=== PATIENT | female | born 1960 | race Caucasian/White ===

== ENCOUNTER 2021-03-21 11:30 | Observation (INO) | payer BC, SELFPAY ==
[2021-03-21] VITALS (7 sets, daily range): BP systolic 90–115; BP diastolic 42–59; PULSE 94–103; RESP 16–26; TEMP 36.6; O2SAT 92–99; BMI 23.3
--- NOTE | 2021-03-21 11:51 | EKG12_ITS ---
Test Reason : EDEMA Blood Pressure : / mmHG Vent. Rate : 101 BPM Atrial Rate : 101 BPM P-R Int : 124 ms QRS Dur : 094 ms QT Int : 342 ms P-R-T Axes : 092 031 053 degrees QTc Int : 443 ms Sinus tachycardia Low voltage QRS Confirmed by LINK LAU, LAYTON ([id number]), subeditor BRII SERRANO ([id number]) on 03/24/2021 9:55:47 AM Referred By: FRANCISCO Confirmed By:LAYTON MAZA MD
--- NOTE | 2021-03-21 11:52 | EX.ED.DYSGE1 ---
HPI History of Present Illness Chief Complaint: Edema Detail of Chief Complaint: Shortness of breath and leg swelling for about a week Informant: patient Narrative Narrative: Patient has history of primary sclerosing cholangitis and had a biliary stent placed at [facility] 5 days ago. Patient is currently on Lasix and spironolactone. Patient states that she is noticed increased welling in her legs as well as her abdomen and she is having a harder time breathing. Patient has history of a right pleural effusion that several months ago required thoracentesis. Patient thinks the fluid may be back. Patient went to [facility] urgent care and was referred to the emergency department. Patient is from [facility] but gets her care at [facility] and did not want to drive all the way to [place]. Prior similar symptoms: Yes [facility] Medical History (Updated 03/21/21 @ 14:[address] Jonatan Ac, DO) PSC (primary sclerosing cholangitis) Home Medications ciprofloxacin HCl 500 mg PO BID 03/21/21 [History Last Taken Unknown] furosemide 40 mg PO DAILY 03/21/21 [History Last Taken Unknown] spironolactone 50 mg PO DAILY 03/21/21 [History Last Taken Unknown] Allergy/AdvReac Type Severity Reaction Status Date / Time Sulfa (Sulfonamide Allergy Hives Verified 03/21/21 11:33 Antibiotics) Social History Smoking Status: Former smoker ROS [facility] ED Constitutional Constitutional ED: Reports systems reviewed and no addt'l complaints, except as documented; Denies body ache(s), change in weight or chills Eyes Eyes: Denies acute decrease in peripheral vision, change in vision, double vision or loss of vision ENT ENT ED: Reports none; Denies ear pain, lip swelling, loss taste/smell, neck pain, otalgia or sore throat Cardiovascular Cardiovascular: Reports none; Denies abdominal pain, chest pain with activity, leg edema, lightheadedness, palpitations, rapid heart rate or syncope Respiratory/Chest Respiratory/Chest: Reports cough, dyspnea and dyspnea on exertion Gastrointestinal Gastrointestinal: Reports none; Denies abdominal pain, change in stool character, diarrhea, hematemesis, hematochezia, melena, rectal bleeding or vomiting Genitourinary Genitourinary ED: Reports none; Denies abdominal discomfort, anuria, dysuria, genital pain or polyuria Musculoskeletal Musculoskeletal: Reports none; Denies arthralgias, back pain, difficulty walking, extremity pain, muscle weakness or myalgias Integumentary Reports none; Denies abscess or rash Neurologic Neurologic: Reports none; Denies abnormal gait, confusion, focal weakness, frequent falls, headache(s), loss of vision, numbness, paresthesias, radicular pain, vertigo or weakness Psychiatric Psychiatric: Reports systems reviewed and no addt'l complaints, except as documented and none; Denies behavioral changes, confusion, difficulty concentrating, hallucinations, suicidal ideation, tactile hallucinations or visual hallucinations Endocrine Endocrinology: Denies none, cold intolerance, excessive sweating, fatigue or heat intolerance Hematologic/Lymphatic Hematologic/Lymphatic: Reports none; Denies anemia, easy bleeding or easy bruising Allergic/Immunologic Allergic/Immunologic ED: Denies as per HPI, none, lip swelling, mouth swelling, throat swelling, tongue swelling or hives EXAM Physical Exam Const Vital Signs: 03/21/21 11:31 03/21/21 11:54 03/21/21 12:20 Temperature 98 F Temperature Source Oral Pulse Rate 103 H 100 Respiratory Rate 16 20 H Respiratory Effort Short of Breath Respiratory Pattern Normal Blood Pressure 115/59 L 101/53 L Blood Pressure Mean 77 69 Pulse Ox 92 92 Oxygen Delivery Method Room Air Room Air 03/21/21 13:47 Temperature Temperature Source Pulse Rate 96 Respiratory Rate 22 H Respiratory Effort Respiratory Pattern Blood Pressure 93/42 L Blood Pressure Mean 59 Pulse Ox 95 Oxygen Delivery Method Room Air Positive well nourished and well developed General Appearance ED: well developed and NAD HEENT Reports TM's clear and moist mucous membranes HEENT Narrative: Patient has scleral icterus normocephalic and atraumatic; Negative for trauma or tenderness Tympanic Membrane ED: Yes TM's clear Eyes PERRL and EOMs intact bilaterally General Eye ED: Negative for pale conjunctiva or scleral icterus Neck no lymphadenopathy, supple and no JVD General: Negative for tenderness Chest Wall inspection of chest normal and palpation of chest normal Chest: Negative for tenderness Resp normal respiratory effort Resp Narrative: Patient has diminished breath sounds on the right compared to the left. Patient has few rales noted on the right. No accessory muscle use or retractions noted. Effort and Inspection: Negative for respiratory distress or pain with movement Auscultation: diminished lung sounds; Negative for rhonchi or wheezes Cardio regular rate, regular rhythm, S1 normal heart sound, S2 normal heart sound and no murmurs Peripheral Pulses: pulses 2+ throughout GI normal to inspection, nondistended, normoactive bowel sounds, soft to palpation, non-tender, non-distended and no masses GI Narrative: Abdomen is distended with a fluid wave noted. No significant tenderness on exam. Back/Spine no CVA tenderness and no thoracic nor lumbar tenderness Extremity normal to inspection General Extremety ED: Negative for edema General Extremity: Negative for edema Neuro oriented x3, CN's II-XII intact bilaterally, no sensory deficits noted and gait normal Sensorium / Orientation: awake, alert, oriented to person, oriented to place and oriented to time Motor Exam: strength 5/5 throughout and strength abnormal Psych mental status grossly normal Skin no rashes or lesions noted and no wounds MDM MDM MDM Narrative Medical decision making narrative: Patient noted to have a large pleural effusion on the right side. I feel this is the etiology of her dyspnea. Patient's bilirubin also elevated to 14 and she tells me her last bilirubin was 13. Given that patient had recent biliary stent placed at [facility] 5 days ago and her db2 systems programmer and specialist are at [facility] patient will be transferred back to their facility. I did discuss case with db2 systems programmer on-call who accepted transfer of patient back to the [facility]. Lab Data Attestation: I reviewed the patient's lab results. Labs: Laboratory Results - last 24 hr 03/21/21 03/21/21 03/21/21 12:15 12:15 12:15 WBC 8.8 RBC 3.72 L Hgb 12.0 Hct 35.0 L MCV 94.1 MCH 32.3 H MCHC 34.3 RDW Std Deviation 59.7 H RDW Coeff of Dorina 17.2 H Plt Count 107 L MPV 9.6 Immature Gran % (Auto) 5.000 H Neut % (Auto) 69.3 Lymph % (Auto) 9.4 L [place] % (Auto) 14.1 H Eos % (Auto) 1.4 Baso % (Auto) 0.8 Absolute Neuts (auto) 6.1 Absolute Lymphs (auto) 0.83 Nucleated RBC % 0 Sodium 129 L Potassium 4.2 Chloride 96 L Carbon Dioxide 28.0 Anion Gap 5 BUN 18 Creatinine 1.22 H Estim Creat Clear Calc 44.76 Est GFR (MDRD) Af Amer 57 L Est GFR (MDRD) Non-Af 47 L BUN/Creatinine Ratio 14.8 Glucose 87 Calcium 7.9 L Total Bilirubin 14.80 H AST 325 H ALT 195 H Alkaline Phosphatase 434 H Troponin I High Sens 6.8 B-Natriuretic Peptide 77.5 Total Protein 6.4 Albumin 1.7 L Globulin 4.7 H Albumin/Globulin Ratio 0.4 L Lipase 292 Radiography Chest X-Ray - ED: 1 View Diagnostic Testing: Radiology Impression Chest X-Ray 03/21/21 11:53 IMPRESSION: Large right-sided pleural effusion with associated airspace disease Small left pleural effusion Calcified mediastinal lymph nodes Electronically Signed: Elvis Martinez DO at 12:13 EDT Tel , Service support , 1 view chest x-ray obtained interpreted by myself as large right-sided pleural effusion and small left pleural effusion. Radiology in agreement. EKG Initial EKG: Attestation: I personally reviewed and interpreted this EKG as follows: Comments: Sinus rhythm with a ventricular rate of 101 bpm with no acute ST segment changes. Prior EKG tracings: not available for review Discharge Plan Triage Chief Complaint: Edema ED Provider: Jonatan Ac Dx/Rx/DC Orders Clinical Impression: Pleural effusion, Acute dyspnea, Hyperbilirubinemia Prescriptions: No Action furosemide 40 mg Tablet 40 mg PO DAILY RF: 0 ciprofloxacin HCl 500 mg Tablet 500 mg PO BID RF: 0 spironolactone 50 mg Tablet 50 mg PO DAILY RF: 0 Primary Care Provider: Remy Carter Referrals: Remy Carter MD [Primary Care Provider] - Disposition Disposition: Transfer to Another Type [facility]
--- NOTE | 2021-03-21 11:53 | RAD_ITS ---
STUDY: X-RAY CHEST REASON FOR EXAM: Female, 60 years old. dyspnea TECHNIQUE: Single AP portable view of the chest. COMPARISON: None. FINDINGS: Cardiac silhouette unremarkable. Pulmonary vascularity unremarkable. Aorta minimally calcified. Large right-sided pleural effusion with associated airspace disease. Small left pleural effusion. Calcified mediastinal lymph nodes. Upper abdomen unremarkable. Osseous structures intact. No pneumothorax. RAD/Chest 1 View (Portable) IMPRESSION: Large right-sided pleural effusion with associated airspace disease Small left pleural effusion Calcified mediastinal lymph nodes Electronically Signed: Elvis Martinez DO at 12:13 EDT Tel , Service support ,
[2021-03-21 12:34] LABS: Absolute Lymphocyte Count 0.83 X10^3/uL (0.83-4.51); Absolute Neutrophil Count 6.1 X10^3/uL (2.0-7.7); Basophil# 0.07 X10^3/uL; Basophil% 0.8 % (0-1); Eosinophil# 0.12 X10^3/uL; Eosinophils% 1.4 % (0-5); Lymphocyte # 0.83 X10^3/ul (0.83-4.51); Lymphocyte % 9.4 % (19-41); Mean Corp Hgb Conc 34.3 g/dL (32-36); Mean Corpuscular Hgb 32.3 pg (27.0-32.0); Mean Corpuscular Volume 94.1 fL (81-99); Mean Platelet Vol. 9.6 fl (6.2-12.0); Monocyte# 1.24 X10^3/uL; Monocyte% 14.1 % (0-10); NRBC Flagged by Analyzer 0 % (0-5); Neutrophil % 69.3 % (47-70); Platelet Count 107 K/mm3 (150-450); RBC Distribution Width CV 17.2 % (11.6-14.6); RBC Distribution Width SD 59.7 fl (35.1-43.9); Red Blood Count 3.72 M/mm3 (4.2-5.4); White Blood Count 8.8 K/mm3 (4.4-11.0)
[2021-03-21 12:52] LABS: ALB/GLOB Ratio 0.4 RATIO (0.9-2.4); AST(SGOT) 325 U/L (15-37); Alanine Aminotransfer ALT/SGPT 195 U/L (13-56); Albumin, Serum 1.7 g/dL (3.2-5.0); Alkaline Phosphatase 434 U/L (45-117); Anion Gap 5 (5-15); BUN 18 mg/dL (7-18); BUN/Creat Ratio 14.8 RATIO (10-20); Calcium,Total 7.9 mg/dL (8.5-10.1); Chloride 96 mmol/L (98-107); Creatinine, Serum 1.22 mg/dL (0.55-1.02); EST Glomerular Filtration Rate 47 mL/min (>60); Est Glom Filt Rate - Afr Amer 57 mL/min (>60); Estimated Creatinine Clearance 44.76 ml/min; Globulin 4.7 g/dL (2.2-4.2); Glucose 87 mg/dL (74-106); Lipase 292 U/L (73-393); Potassium 4.2 mmol/L (3.5-5.1); Protein, Total 6.4 g/dL (6.4-8.2); Sodium Level 129 mmol/L (136-145); Troponin-I HS 6.8 pg/mL (3.0-53.7)
[2021-03-21 12:56] LABS: BNP,B-Type NATRIURETIC PEPTIDE 77.5 pg/mL (0-100)
[2021-03-22] VITALS (9 sets, daily range): BP systolic 84–129; BP diastolic 26–77; PULSE 62–104; RESP 14–20; O2SAT 92–97
--- NOTE | 2021-03-22 07:24 | NURSING ---
CALLED [facility] TRANSFER LINE. TALKED TO KHOI. PATIENT IS ACCEPTED, BUT SHE RECOMMENDED WE ADMIT HER HERE
--- NOTE | 2021-03-22 10:07 | NURSING ---
CALLED [facility] FOR TRANSFER. BRITTNEY TOOK INFO, WILL CALL BACK
--- NOTE | 2021-03-22 11:54 | NURSING ---
BRITTNEY MELLO, REFUSED PATIENT
[2021-03-22] MEDS: LORazepam 2 MG/ML Syringe 0.5 MG IV (12:31)
[2021-03-22] MEDS: Furosemide 40 MG Tablet PO (14:08)
[2021-03-22] MEDS: Spironolactone 50 MG Tablet PO (14:08)
--- NOTE | 2021-03-22 14:22 | US_ITS ---
PROCEDURE: ULTRASOUND GUIDED THORACENTESIS. DATE: 03/22/2021.. INDICATION: Female, 60 years old. Right pleural effusion. PHYSICIAN: Graham Amaya M.D. PROCEDURE: The risks, benefits, and alternatives to the procedure were explained to the right. The specific risks of bleeding, infection, and pneumothorax requiring chest tube insertion were discussed and accepted. Written informed consent was obtained. Ultrasonographic evaluation of the right lower pleural space was carried out. An adequate pocket was identified. The patient was placed in the sitting, upright position. The overlying skin was prepped and draped in sterile fashion. 1% lidocaine was administered subcutaneously for local anesthesia. Under ultrasound guidance, a 5 Monegasque thoracentesis needle/catheter system was advanced into the right posterior lower pleural fluid collection. Approximately 2000 mL of balwinder-colored fluid fluid was drained. The catheter was removed, and a sterile dressing was applied. The patient tolerated the procedure well. A chest x-ray was ordered. US/Thoracentesis W US IMPRESSION: Ultrasound-guided right thoracentesis. Electronically Signed: Graham Amaya MD at 15:33 EDT , Service support ,
--- NOTE | 2021-03-22 15:00 | RAD_ITS ---
STUDY: X-RAY CHEST REASON FOR EXAM: Female, 60 years old. POST THORA TECHNIQUE: AP inspiration and expiration views. COMPARISON: Comparison is made with prior study done earlier today. FINDINGS: The patient is status post right thoracentesis with removal of 2 L of balwinder-colored fluid. No evidence of pneumothorax. Residual pleural parenchymal changes in the right hemithorax. RAD/Chest Insp/Exp 2 View IMPRESSION: Status post right thoracentesis with removal of 2 L of balwinder-colored fluid. No evidence of pneumothorax. Electronically Signed: Graham Amaya MD at 15:25 EDT , Service support ,
[2021-03-22] MEDS: Ciprofloxacin 500 MG Tablet PO (18:00)
[2021-03-23] VITALS (8 sets, daily range): BP systolic 85–109; BP diastolic 43–62; PULSE 90–98; RESP 14–20; TEMP 36.7; O2SAT 94–96
[2021-03-23 00:04] LABS: Absolute Lymphocyte Count 1.02 X10^3/uL (0.83-4.51); Basophil# 0.05 X10^3/uL; Basophil% 0.6 % (0-1); Eosinophils% 2.3 % (0-5); Hematocrit 30.3 % (37-47); Hemoglobin 10.3 g/dL (12.0-15.0); Lymphocyte # 1.02 X10^3/ul (0.83-4.51); Lymphocyte % 11.8 % (19-41); Mean Corpuscular Hgb 32.3 pg (27.0-32.0); Mean Platelet Vol. 9.5 fl (6.2-12.0); Monocyte# 1.09 X10^3/uL; Monocyte% 12.6 % (0-10); NRBC Flagged by Analyzer 0 % (0-5); Neutrophil # 5.95 X10^3/uL (2.7-7.7); Neutrophil % 68.5 % (47-70); POSITIVE COUNT YES; Platelet Count 84 K/mm3 (150-450); RBC Distribution Width CV 17.5 % (11.6-14.6); RBC Distribution Width SD 60.9 fl (35.1-43.9); Red Blood Count 3.19 M/mm3 (4.2-5.4); White Blood Count 8.7 K/mm3 (4.4-11.0)
[2021-03-23 00:05] LABS: Differential Indicated SCAN CRITERIA MET
[2021-03-23 00:21] LABS: Differential Comment SCANNED
[2021-03-23 00:22] LABS: Platelet Estimate MOD DEC (ADEQ)
[2021-03-23 00:27] LABS: ALB/GLOB Ratio 0.4 RATIO (0.9-2.4); AST(SGOT) 197 U/L (15-37); Alanine Aminotransfer ALT/SGPT 140 U/L (13-56); Albumin, Serum 1.4 g/dL (3.2-5.0); Alkaline Phosphatase 349 U/L (45-117); Anion Gap 7 (5-15); BUN 21 mg/dL (7-18); BUN/Creat Ratio 15.8 RATIO (10-20); Calcium,Total 7.8 mg/dL (8.5-10.1); Chloride 97 mmol/L (98-107); Creatinine, Serum 1.33 mg/dL (0.55-1.02); EST Glomerular Filtration Rate 43 mL/min (>60); Est Glom Filt Rate - Afr Amer 52 mL/min (>60); Estimated Creatinine Clearance 41.06 ml/min; Globulin 3.9 g/dL (2.2-4.2); Glucose 110 mg/dL (74-106); Lipase 287 U/L (73-393); Potassium 3.8 mmol/L (3.5-5.1); Protein, Total 5.3 g/dL (6.4-8.2); Sodium Level 132 mmol/L (136-145)
[2021-03-23] MEDS: Spironolactone 50 MG Tablet 100 MG PO (10:06)
[2021-03-23] MEDS: Furosemide 40 MG Tablet PO (10:06)
--- NOTE | 2021-03-23 10:30 | NURSING ---
CALLED [facility]. NO BED YET. NOT EXPECTING ANY DISCHARGES. CAN CALL BACK AFTER 1600 TO CHECK AGAIN
[2021-03-23] MEDS: LORazepam 0.5 MG Tablet PO (15:58)
--- NOTE | 2021-03-23 16:02 | NURSING ---
CALLED [facility] TRANSFER LINE. NOT LIKELY TO GET A BED TODAY. 70 PATIENTS IN THEIR ERS WAITING. THEY ARE AT CRITICAL BED STATUS
--- NOTE | 2021-03-23 16:09 | ED.RN ---
Pt aware that they have 70 pt ahead of her for bed placement
--- NOTE | 2021-03-23 18:53 | ED.RN ---
This RN talked to Dr. Barreto about admission to hospital. Dr. Barreto states they have tried multiple times but have been unsuccessful. Pt aware bed status at [place]
[2021-03-24] VITALS: BP 108/54; PULSE 82; RESP 15; O2SAT 99
[2021-03-24 04:55] VITALS: BP 118/56; PULSE 60; RESP 18; O2SAT 95
[2021-03-24 05:01] LABS: Hematocrit 31.7 % (37-47); Mean Corp Hgb Conc 34.7 g/dL (32-36); Mean Corpuscular Hgb 32.6 pg (27.0-32.0); Mean Corpuscular Volume 94.1 fL (81-99); POSITIVE COUNT YES; POSITIVE MORPHOLOGY YES; Platelet Count 88 K/mm3 (150-450); RBC Distribution Width CV 17.7 % (11.6-14.6); RBC Distribution Width SD 60.5 fl (35.1-43.9); Red Blood Count 3.37 M/mm3 (4.2-5.4); White Blood Count 9.3 K/mm3 (4.4-11.0)
[2021-03-24 05:06] LABS: Differential Indicated MANUAL DIFF
[2021-03-24 05:18] LABS: ALB/GLOB Ratio 0.4 RATIO (0.9-2.4); AST(SGOT) 212 U/L (15-37); Alanine Aminotransfer ALT/SGPT 153 U/L (13-56); Albumin, Serum 1.5 g/dL (3.2-5.0); Alkaline Phosphatase 373 U/L (45-117); Anion Gap 7 (5-15); BUN 20 mg/dL (7-18); BUN/Creat Ratio 17.4 RATIO (10-20); Calcium,Total 7.6 mg/dL (8.5-10.1); Chloride 96 mmol/L (98-107); Creatinine, Serum 1.15 mg/dL (0.55-1.02); EST Glomerular Filtration Rate 51 mL/min (>60); Est Glom Filt Rate - Afr Amer 61 mL/min (>60); Estimated Creatinine Clearance 47.48 ml/min; Globulin 3.9 g/dL (2.2-4.2); Glucose 95 mg/dL (74-106); Lipase 302 U/L (73-393); Potassium 3.6 mmol/L (3.5-5.1); Protein, Total 5.4 g/dL (6.4-8.2); Sodium Level 133 mmol/L (136-145)
[2021-03-24 05:20] LABS: Total Cells Counted 100 (MANUAL DIFF)
[2021-03-24 05:24] LABS: Neutrophil-Segmented 67 % (47-70)
[2021-03-24 05:25] LABS: Absolute Neutrophil Count 6.4 X10^3/uL (2.0-7.7); Eosinophil 3 % (0-5); Lymphocyte 12 % (19-41); Metamyelocyte 1 % (0-1); Monocyte 13 % (0-10); Myelocyte 2 % (0-0); Neutrophil # 6.38 X10^3/uL (2.7-7.7); Neutrophil-Band 2 % (0-5)
[2021-03-24 05:26] LABS: Absolute Lymphocyte Count 1.11 X10^3/uL (0.83-4.51); Lymphocyte # 1.11 X10^3/ul (0.83-4.51); Platelet Estimate MOD DEC (ADEQ)
[2021-03-24 05:28] LABS: Red Cell Morphology NORM C+C NORMAL (NORM C&C)
--- NOTE | 2021-03-24 07:40 | ED.RN ---
Called [facility]. Pt has 47 pts ahead of her awaiting beds. According to [facility] that does not include Emergency room pt
[2021-03-24 10:15] VITALS: BP 97/46; PULSE 94; RESP 16; TEMP 36.5; O2SAT 94
--- NOTE | 2021-03-24 10:46 | MRI_ITS ---
STUDY: MR MRCP WITHOUT CONTRAST REASON FOR EXAM: Female, 60 years old. Persistent hyperbilirubinemia after biliary stent -- hx PSC/cirrhosis TECHNIQUE: Standard MRCP technique was utilized. COMPARISON: None. FINDINGS: Evaluation is significantly limited due to patient motion. Additionally, the solid organs are not well evaluated without intravenous contrast. Neoplasm can''t be excluded. There is a large right pleural effusion. There is marked nodularity of the liver. The liver is small in size. This is consistent with advanced cirrhosis. There are no focal hepatic lesions identified. There is mild intrahepatic biliary duct dilatation. There is a common bile duct stent in place. The common bile duct is dilated, measuring up to 1 cm. The gallbladder is not identified. The spleen is enlarged. There are varices noted in the left upper quadrant. The pancreas, adrenal glands and kidneys are grossly unremarkable. There is no bowel obstruction. The aorta is normal in caliber. Small amount of ascites. MRI/MRCP Abdomen without Contrast IMPRESSION: Significantly limited exam. Large right pleural effusion. Advanced cirrhosis. No definite focal hepatic lesions identified. Mild intrahepatic biliary duct dilatation. Dilated common bile duct with a common bile duct stent in place. Gallbladder not identified. Signs of portal hypertension, including splenomegaly, varices and ascites. Electronically Signed: Alexys Marquez MD at 14:14 EDT Tel , Service support ,
[2021-03-24 13:48] LABS: Pathologist Review Reviewed
[2021-03-24 14:05] VITALS: BP 97/46; PULSE 94; RESP 16; TEMP 36.5; O2SAT 94
[2021-03-24] MEDS: Spironolactone 50 MG Tablet 100 MG PO (14:22)
[2021-03-24] MEDS: Furosemide 40 MG Tablet PO (14:24)
--- NOTE | 2021-03-24 14:30 | HP.PCM.HOS_ITS ---
HPI - General HPI Narrative PIPE WEST, is a 60 F who presents with dyspnea from home 3 days ago. She has a history of primary biliary cirrhosis and had a biliary stent placed at the [facility] by her clamshell engineer. She is awaiting a liver transplant but presented to the hospital secondary to dyspnea. She was found to have a pleural effusion and 2 L was taken off, and in discussion with the radiologist he says at the rest of the fluid and there is a consolidation that is not amenable to thoracentesis. She has been in the ER for about 74 hours now secondary to awaiting placement. [facility] Medical History (Updated 03/24/21 @ 14:30 by Halie Mera) Former smoker PSC (primary sclerosing cholangitis) Skin cancer Home Medications furosemide 40 mg PO DAILY 03/21/21 [History Last Taken Unknown] spironolactone 100 mg PO DAILY 03/21/21 [History Last Taken Unknown] Allergy/AdvReac Type Severity Reaction Status Date / Time Sulfa (Sulfonamide Allergy Hives Verified 03/21/21 11:33 Antibiotics) Family History (Updated 03/24/21 @ 14:[address] Margarito Chaves MD) Other Breast cancer COPD (chronic obstructive pulmonary disease) Surgical History (Updated 03/24/21 @ 14:30 by Halie Mera) H/O: hysterectomy History of biliary duct stent placement History of cholecystectomy Social History Smoking Status: Former smoker ROS Constitutional Constitutional: Denies chills, fatigue, fever(s) or malaise Eyes Eyes: Denies blurry vision ENT HEENT: Denies headache(s) or nasal discharge Cardiovascular Cardiovascular: Reports dyspnea on exertion; Denies chest pain or syncope Respiratory/Chest Respiratory/Chest: Denies cough, shortness of breath at rest or shortness of breath with exertion Gastrointestinal Gastrointestinal: Denies constipation, diarrhea, nausea or vomiting Genitourinary Genitourinary: Denies dysuria Integumentary Integumentary: Reports jaundice Neurologic Neurologic: Denies focal weakness, numbness or tremor(s) Psychiatric Psychiatric: Denies anxiety or depression Vital Signs Vital Signs Vital Signs: 03/23/21 18:51 03/23/21 20:00 03/23/21 22:00 Temperature 98.0 F Temperature Source Temporal Pulse Rate 90 Respiratory Rate 16 14 16 Blood Pressure 103/54 L Blood Pressure Mean 70 Pulse Ox 94 Oxygen Delivery Method Room Air 03/24/21 00:00 03/24/21 04:55 03/24/21 10:15 Temperature 97.7 F L Temperature Source Temporal Pulse Rate 82 60 94 Respiratory Rate 15 18 16 Blood Pressure 108/54 L 118/56 L 97/46 L Blood Pressure Mean 72 76 63 Pulse Ox 99 95 94 Oxygen Delivery Method Room Air Room Air Room Air 03/24/21 14:05 Temperature 97.7 F L Temperature Source Temporal Pulse Rate 94 Respiratory Rate 16 Blood Pressure 97/46 L Blood Pressure Mean 63 Pulse Ox 94 Oxygen Delivery Method Room Air Weight Weight: 145 lb Body Mass Index (BMI) 23.3 Physical Exam Const alert, oriented x3 and no apparent distress General Appearance: cooperative HEENT normocephalic and moist oral mucous membranes HEENT Narrative: Scleral icterus Eyes PERRL, EOMs intact bilaterally and conjunctivae normal Neck supple and no JVD Resp normal respiratory effort, no retractions, no use of accessory muscles and clear to auscultation bilaterally Auscultation: breath sounds absent right (Two thirds up the lung); Negative for crackles, rales, rhonchi or wheezes Cardio regular rate, regular rhythm, S1 normal heart sound, S2 normal heart sound and no murmurs GI soft to palpation, non-tender and non-distended; Negative for hepatosplenomegaly Extremity no clubbing, cyanosis or edema Skin no rashes or lesions noted General Skin Exam: jaundice Neuro no focal motor deficits and no sensory deficits noted Psych affect normal Appearance: appropriate Results Lab / Micro Data Result Diagrams: 03/24/21 04:53 03/24/21 04:53 Labs: Laboratory Results - last 24 hr 03/24/21 04:53: WBC 9.3, RBC 3.37 L, Hgb 11.0 L, Hct 31.7 L, MCV 94.1, MCH 32.6 H, MCHC 34.7, RDW Std Deviation 60.5 H, RDW Coeff of Dorina 17.7 H, Plt Count 88 L, MPV 9.0, Neut % (Auto) Not Reportable, Absolute Neuts (auto) 6.4, Absolute Lymphs (auto) 1.11, Total Counted 100, Neutrophils % (Manual) 67, Band Neutrophils % 2, Lymphocytes % (Manual) 12 L, Monocytes % (Manual) 13 H, Eosinophils % (Manual) 3, Metamyelocytes % 1, Myelocytes % 2 H, Diff Path Review Reviewed, Platelet Estimate MOD DEC, RBC Morphology NORM C+C 03/24/21 04:53: Sodium 133 L, Potassium 3.6, Chloride 96 L, Carbon Dioxide 30.0, Anion Gap 7, BUN 20 H, Creatinine 1.15 H, Estim Creat Clear Calc 47.48, Est GFR (MDRD) Af Amer 61, Est GFR (MDRD) Non-Af 51 L, BUN/Creatinine Ratio 17.4, Glucose 95, Calcium 7.6 L, Total Bilirubin 13.70 H, AST 212 H, ALT 153 H, Alkaline Phosphatase 373 H, Total Protein 5.4 L, Albumin 1.5 L, Globulin 3.9, Albumin/Globulin Ratio 0.4 L, Lipase 302 Radiology Impression MRCP 03/24/21 10:46 IMPRESSION: Significantly limited exam. Large right pleural effusion. Advanced cirrhosis. No definite focal hepatic lesions identified. Mild intrahepatic biliary duct dilatation. Dilated common bile duct with a common bile duct stent in place. Gallbladder not identified. Signs of portal hypertension, including splenomegaly, varices and ascites. Electronically Signed: Alexys Marquez MD at 14:14 EDT Tel , Service support , Assessment & Plan Assessment/Plan (1) Acute dyspnea: PLAN: 1. Acute dyspnea on exertion secondary to right-sided large pleural effusion and consolidation -Thoracentesis was done with 2 L removed, it was therapeutic and not diagnostic -Repeat imaging shows a continued large right-sided consolidation -Over read by in-house radiology felt that the fluid seen on the MRCP was consolidation not amenable to thoracentesis -We will continue with her diuresis -Awaiting transfer to the [facility] for further evaluation of this consolidation may need surgical procedure for optimal treatment. 2. Primary sclerosing biliary cirrhosis -She is awaiting transplant and continue with work-up -Stent was placed at [facility] [place] which she will be transferred to when a bed becomes available -MRCP shows the stent is in good position with mild intrahepatic biliary duct dilatation, and advanced cirrhosis -Continue with Lasix and Aldactone 3. Anxiety -We will provide her with Ativan 0.5 mg p.o. daily as needed secondary to anxiety given her medical history DVT: SCDs Charges/Coding Visit Charges OBSV E&M: [id number] Initial observation care L3
[2021-03-24 14:45] VITALS: BMI 22.4
[2021-03-24 14:48] VITALS: BP 93/52; PULSE 93; RESP 16; TEMP 37.1; O2SAT 98
[2021-03-24 20:47] VITALS: BP 96/45; PULSE 96; RESP 18; TEMP 36.8; O2SAT 96
[2021-03-24] MEDS: LORazepam 0.5 MG Tablet PO (20:56)
[2021-03-25 02:59] VITALS: BP 93/53; PULSE 98; RESP 18; TEMP 36.8; O2SAT 94
[2021-03-25 07:04] LABS: Anion Gap 5 (5-15); BUN 18 mg/dL (7-18); BUN/Creat Ratio 16.5 RATIO (10-20); Calcium,Total 7.5 mg/dL (8.5-10.1); Chloride 98 mmol/L (98-107); Creatinine, Serum 1.09 mg/dL (0.55-1.02); EST Glomerular Filtration Rate 54 mL/min (>60); Est Glom Filt Rate - Afr Amer 65 mL/min (>60); Glucose 93 mg/dL (74-106); Potassium 3.6 mmol/L (3.5-5.1); Sodium Level 132 mmol/L (136-145)
--- NOTE | 2021-03-25 07:08 | PCM.PN.HOSP ---
Subjective Subjective Doing well, no issues overnight. Denies any significant shortness of breath and is maintaining her oxygen sats on room air. Objective Data Objective Data Vital Signs: Vital Signs Temp Pulse Resp BP Pulse Ox 98.2 F 98 18 93/53 L 94 03/25/21 02:59 03/25/21 02:59 03/25/21 02:59 03/25/21 02:59 03/25/21 02:59 Oxygen Delivery Method [3] Room Air Oxygen Delivery Method [2] Room Air Oxygen Delivery Method [1 ( Room Air Initial Baseline)] Oxygen Delivery Method Room Air Weight: 138 lb 12.8 oz Body Mass Index (BMI) 22.4 Intake & Output: Intake and Output for Last 24 Hours 03/24/21 03/25/21 03/26/21 03:59 03:59 03:59 Intake Total 540 / 540 200 / 200 Balance 540 / 540 200 / 200 Lab / Micro Data Result Diagrams: 03/24/21 04:53 03/25/21 05:15 Labs: Laboratory Results - last 24 hr 03/24/21 04:53: Diff Path Review Reviewed 03/25/21 05:15: Sodium 132 L, Potassium 3.6, Chloride 98, Carbon Dioxide 29.0, Anion Gap 5, BUN 18, Creatinine 1.09 H, Estim Creat Clear Calc 50.10, Est GFR (MDRD) Af Amer 65, Est GFR (MDRD) Non-Af 54 L, BUN/Creatinine Ratio 16.5, Glucose 93, Calcium 7.5 L Micro: Microbiology 03/21/21 14:30 Mucosa - Nose SARS-CoV-2 Antigen (Rapid) - Final Radiography Diagnostic Testing: Radiology Impression MRCP 03/24/21 10:46 IMPRESSION: Significantly limited exam. Large right pleural effusion. Advanced cirrhosis. No definite focal hepatic lesions identified. Mild intrahepatic biliary duct dilatation. Dilated common bile duct with a common bile duct stent in place. Gallbladder not identified. Signs of portal hypertension, including splenomegaly, varices and ascites. Electronically Signed: Alexys Marquez MD at 14:14 EDT Tel , Service support , Physical Exam Const alert, oriented x3 and no apparent distress General Appearance: cooperative HEENT normocephalic and moist oral mucous membranes Eyes PERRL, EOMs intact bilaterally and conjunctivae normal Neck supple and no JVD Resp normal respiratory effort, no retractions, no use of accessory muscles and clear to auscultation bilaterally Auscultation: breath sounds absent right (Two thirds up the lung); Negative for crackles, rales, rhonchi or wheezes Cardio regular rate, regular rhythm, S1 normal heart sound, S2 normal heart sound and no murmurs GI soft to palpation, non-tender and non-distended; Negative for hepatosplenomegaly Extremity no clubbing, cyanosis or edema Skin no rashes or lesions noted General Skin Exam: jaundice Neuro no focal motor deficits and no sensory deficits noted Psych affect normal Appearance: appropriate Assessment & Plan Assessment/Plan (1) Acute dyspnea: PLAN: 1. Acute dyspnea on exertion secondary to right-sided large pleural effusion and consolidation -Thoracentesis was done with 2 L removed, it was therapeutic and not diagnostic -Repeat imaging shows a continued large right-sided consolidation -Over read by in-house radiology felt that the fluid seen on the MRCP was consolidation not amenable to thoracentesis -We will continue with her diuresis -Awaiting transfer to the [facility] for further evaluation of this consolidation may need surgical procedure for optimal treatment. 2. Primary sclerosing biliary cirrhosis -She is awaiting transplant and continue with work-up -Stent was placed at [facility] which she will be transferred to when a bed becomes available -MRCP shows the stent is in good position with mild intrahepatic biliary duct dilatation, and advanced cirrhosis -Continue with Lasix and Aldactone 3. Anxiety -We will provide her with Ativan 0.5 mg p.o. daily as needed secondary to anxiety given her medical history DVT: SCDs Charges/Coding Visit Charges OBSV E&M: 69956 Subsequent observation care L2
[2021-03-25 08:36] VITALS: BP 92/44; PULSE 88; RESP 18; TEMP 36.6; O2SAT 94
[2021-03-25] MEDS: Spironolactone 50 MG Tablet 100 MG PO (10:17)
[2021-03-25] MEDS: Furosemide 40 MG Tablet PO (10:17)
[2021-03-25 14:38] VITALS: BP 93/50; PULSE 86; RESP 18; TEMP 36.7; O2SAT 94
[2021-03-25 20:09] VITALS: BP 94/35; PULSE 90; RESP 18; TEMP 36.4; O2SAT 95
[2021-03-25 20:22] VITALS: RESP 18; O2SAT 95
[2021-03-25] MEDS: LORazepam 0.5 MG Tablet PO (20:28)
[2021-03-26 01:47] VITALS: BP 97/54; PULSE 85; RESP 16; TEMP 36.6; O2SAT 92
[2021-03-26 01:51] VITALS: O2SAT 92
--- NOTE | 2021-03-26 05:28 | PCM.PN.BLA ---
Progress Note Received message from nursing team that patient has had a bed at [facility] and needs to be transferred out as per earlier arrangements. Patient was seen nor examined. Discharge order placed. Will sign paperwork for discharge. Patient attending doctor to do appropriate discharge summary.
--- NOTE | 2021-03-26 05:31 | NURSING ---
Notified Dr Miller that [facility] called and bed was available for Pt sent Transfer form for Dr Miller to sign. Dr Miller put in DC order.
--- NOTE | 2021-03-26 06:31 | NURSING ---
Tried called report to [facility], they said the nurse taking the patient was doing an admit. They took the floor number and my extention. I let them know that we would be doing shift change soon and I would be leaving.
--- NOTE | 2021-03-26 06:51 | NURSING ---
Gave Report to [facility] nurse for Lita Veronica. Transport just arrived.
[2021-03-26 06:52] VITALS: BP 90/57; PULSE 86; RESP 18; TEMP 36.6; O2SAT 93
[2021-03-26 06:55] VITALS: BP 90/57; PULSE 86; RESP 18; TEMP 36.6; O2SAT 93
--- NOTE | 2021-03-26 07:23 | DS.PCM_ITS ---
Providers Date of Admission: 03/24/21 Primary Care Physician: Dr. Remy Carter MD Reason For Visit: DYSPNEA Diagnosis Discharge Diagnosis (1) Acute dyspnea: Status: Acute Code(s): R06.00 - Dyspnea, unspecified Medications at Discharge Home Medications furosemide 40 mg PO DAILY 03/21/21 spironolactone 100 mg PO DAILY 03/21/21 Hospital Course Operations None Procedures None Summary of Care Provided Minutes Spent on Discharge: 35 Hospital Course: Per HPI: PIPE WEST, is a 60 F who presents with dyspnea from home 3 days ago. She has a history of primary biliary cirrhosis and had a biliary stent placed at the [facility] by her hvac controls technician. She is awaiting a liver transplant but presented to the hospital secondary to dyspnea. She was found to have a pleural effusion and 2 L was taken off, and in discussion with the radiologist he says at the rest of the fluid and there is a consolidation that is not amenable to thoracentesis. She has been in the ER for about 74 hours now secondary to awaiting placement. Hospital Course: 1. Acute dyspnea on exertion secondary right-sided large pleural effusion with [id number] female presented to the hospital with dyspnea on exertion, she was recently at [facility] facility where they placed a stent in her biliary system secondary to primary biliary cirrhosis. Her bilirubin was elevated to 14 however she states that this is baseline for her while she is awaiting a liver transplant. However she did have a large right pleural effusion on chest x-ray and this was drained for about 2 L unfortunately no diagnostic evaluation was performed. MRCP demonstrated mild biliary duct dilatation with advanced cirrhosis however there is also evaluation of the pleural space after drainage and in-house radiology felt that it demonstrated a consolidation not amenable to thoracentesis which will likely need operative management this pulmonary consolidation. She has been awaiting transfer from [facility] however she received a bed this morning and was discharged. 2. Primary biliary cirrhosis, anxiety her chronic medical conditions which complicate her care. Her home medications were continued where appropriate Weight / BMI Weight Weight: 138 lb 12.8 oz Body Mass Index (BMI) 22.4 ABG / Lab / Microbiology Data Result Diagrams: 03/24/21 04:53 03/25/21 05:15 Microbiology: Microbiology 03/21/21 14:30 Mucosa - Nose SARS-CoV-2 Antigen (Rapid) - Final Meaningful Use Info Meaningful Use Diagnoses (Choose all that apply): None applicable Discharge Plan Admission Admit Date/Time: 03/24/21 14:29 Attending Provider: Margarito Chaves Primary Care Provider: Remy Carter Instructions Patient Instructions: Thoracentesis Dc Discharge Orders/Prescriptions Prescriptions: No Action furosemide 40 mg Tablet 40 mg PO DAILY RF: 0 spironolactone 50 mg Tablet 100 mg PO DAILY RF: 0 Referrals / Follow Up: Remy Carter MD [Primary Care Provider] - Disposition Discharge Orders: Discharge Patient (Routine); Ordered 03/26/21 Ordered By: Dr. Jagjit Bean Charges/Coding Visit Charges OBSV E&M: 06571 Observation care discharge
== END 2021-03-26 07:08 | disposition short-term general hospital (02) ==
LOC: ED 03-24 00:05 → MS3 03-24 14:32
PROVIDERS: Emergency Medicine; Admitting Provider Family Medicine; Emergency Provider Student in an Organized Health Care Education/Training Program; Visit Provider Family Medicine
DX: J90 Pleural effusion, not elsewhere classified (principal); K74.3 Primary biliary cirrhosis; F41.9 Anxiety disorder, unspecified; K83.01 Primary sclerosing cholangitis; Z87.891 Personal history of nicotine dependence; Z94.4 Liver transplant status; Z79.899 Other long term (current) drug therapy
CPT/HCPCS: 32555; 36415; 71045; 71046; 74181; 80048; 80053; 83690; 83880; 84484; 85025; 87426; 93005; 96374; 99218; 99285; A4216; G0378